=== PATIENT | female | born 1985 | race Two or more races ===

== ENCOUNTER → 2021-10-08 07:40 | Outpatient (BNVA) | payer MEDICAID, SELFPAY | PROVIDERS: PCP Advanced Practice Midwife; Referring Provider Advanced Practice Midwife; Visit Provider Physician Assistant | DX: F40.298 Other specified phobia (principal); Z83.71 Family history of colonic polyps; Z80.0 Family history of malignant neoplasm of digestive organs | CPT/HCPCS: 99202 ==

== ENCOUNTER 2022-01-30 07:58 | Day surgery (SDC) | payer MEDICAID, SELFPAY ==
--- NOTE | 2022-01-29 14:06 | HO.ANESPROP2 ---
Documented by User: Keyanna Goldsmith NP 01/29/22 14:07 HPI - Anesthesia Eval Consult details Narrative: 36yo F for Colonoscopy PMFSH Active Problems Active Problems: All Active Problems (Updated 01/24/22 @ 14:30 by Mraie Cowan, ERIC) Family history of colon cancer (Acute) Family history of colonic polyps (Acute) Cancer phobia (Acute) Past Medical History Medical History Depression Insomnia Mild intermittent asthma PTSD (post-traumatic stress disorder) Family History Family History Father Heart disease Diabetes Mother Anxiety Depression Colon polyps Family/Other Colon cancer Surgical History Surgical History History of laparoscopic appendectomy Hx of section Social History Social History Household Members: Spouse Alcohol intake: current Alcohol intake frequency: holidays/special occasions only Patient Tobacco Use Status: Former Tobacco user Tobacco use type: Cigarette e-Cigarette/Vaping Use: Currently Using Advance Directives: No Advance Directives Information Provided: Yes Meds Allergies Allergy/AdvReac Type Severity Reaction Status Date / Time No Known Allergies Allergy Verified 01/24/22 13:49 Home Medications Medication Instructions Recorded Confirmed Last Taken Type clonazepam 1 mg tablet 1 mg PO DAILY 10/08/21 01/24/22 Unknown History risperidone 0.25 mg tablet 0.25 mg PO DAILY 10/08/21 01/24/22 Unknown History zolpidem 10 mg tablet 10 mg PO BEDTIME PRN Sleep 10/08/21 01/24/22 Unknown History Exam Exam Date and Time: January 29, 2022 1406 Assessment and Plan Assessment Anesthesia Assessment: Chart Reviewed Documented by User: Marybeth Christianson MD 01/30/22 08:47 [facility] Past Medical History Medical History Depression Insomnia Mild intermittent asthma PTSD (post-traumatic stress disorder) Functional capacity: independent ambulation Patient : No Family History Family History Father Heart disease Diabetes Mother Anxiety Depression Colon polyps Family/Other Colon cancer Family history of problems with anesthesia: No Surgical History Surgical History History of laparoscopic appendectomy Hx of section History of Problems with Anesthesia: No Social History Social History Household Members: Spouse Alcohol intake: current Alcohol intake frequency: holidays/special occasions only Patient Tobacco Use Status: Former Tobacco user Tobacco use type: Cigarette e-Cigarette/Vaping Use: Currently Using Advance Directives: No Advance Directives Information Provided: Yes Meds Allergies Allergy/AdvReac Type Severity Reaction Status Date / Time No Known Allergies Allergy Verified 01/24/22 13:49 Home Medications Medication Instructions Recorded Confirmed Last Taken Type clonazepam 1 mg tablet 1 mg PO DAILY 10/08/21 01/24/22 Unknown History risperidone 0.25 mg tablet 0.25 mg PO DAILY 10/08/21 01/24/22 Unknown History zolpidem 10 mg tablet 10 mg PO BEDTIME PRN Sleep 10/08/21 01/24/22 Unknown History Exam Airway Mallampati Class: II TM Dist: >3cm Neck ROM: Full Heart: RRR Assessment and Plan Final Anesthetic Review Family History of Problems with Anesthesia: No History of Problems with Anesthesia: No ASA Class: II Final Preanesthetic Review: No Changes in Pt Med Stat, Meds/Allgs Chart Reviewed, Consent Obtained/Reviewed and Anes Risks/Benef Reviewed Patient Risk: Low Procedure Risk: Low Anesthetic Plan Anesthetic Plan: MAC: Disposition: Standard PACU
[2022-01-30 08:43] VITALS: BMI 27.4
[2022-01-30 08:43] LABS: UPreg QC Valid YES; Urine Pregnancy NEGATIVE (NEGATIVE)
[2022-01-30 08:52] VITALS: BP 107/71; PULSE 92; RESP 18; TEMP 36.8; O2SAT 97
[2022-01-30 08:53] VITALS: BMI 27.4
--- NOTE | 2022-01-30 09:10 | MHC.SHP ---
Pre-Procedural Eval Section A Date of Service: 01/30/22 Section B Chief Complaint: hx of colonic polyps and malignant neoplasm Details of Present Illness: fh of polyps in mother Relevant Family History (Specify if Yes): Yes Relevant Social History: Other (specify) (vaping) Present Medications: see Short Stay Collaborative assessment Medical History: Significant History (Depression Insomnia Mild intermittent asthma PTSD (post-traumatic stress disorder)) History of Previous Operations: Relevant previous surgery/procedure and date(s) (History of laparoscopic appendectomy Hx of section) Allergies: Allergies Allergy/AdvReac Type Severity Reaction Status Date / Time No Known Allergies Allergy Verified 01/24/22 13:49 Review of Systems Sugical H&P ROS: Negative: Constitution, Cardiovascular, Respiratory, Neurological, Psychiatric, Hem-Onc, Allergic/Immunologic, Gastrointestinal, Genitourinary, Musculoskeletal, Integumentary, Endocrine and Eyes/Ears/Nose/Throat Exam Surgical H&P Exam: Normal: HEENT, Normal: Heart, Normal: Lungs, Normal: Extremities, Normal: Abdomen, Normal: Skin and Normal: Neurological Plan Diagnosis/Plan: Unchanged I have reviewed the history and physical and performed a pertinent physical examination on my patient. No changes have occurred unless specified.
--- NOTE | 2022-01-30 09:16 | W.PM.OPN ---
Operative Note Operative Note Date of Service: 01/30/22 Narrative: Operative Information Procedure Description: Colonoscopy Indication: Fh of colon polyps, cancer Anesthesia: MAC COLONOSCOPY Instrument: Olympus variable stiffness pediatric scope 190L Colonoscopy Monitoring: Vital signs and clinical assessment, continuous EKG monitoring, Pulse oximetry, Carbon Dioxide monitoring and blood pressure monitoring were done throughout the procedure. Colon withdrawal time was 7 minutes. Procedure: The patient was placed in the left lateral decubitis position and pre-procedure medications were administered. After a digital rectal examination of the ano-rectum, the video colonoscope was inserted into the rectum and advanced through the colon to the cecum/TI. The colonoscope was slowly withdrawn in a retrograde panoramic fashion and the colon mucosa was carefully examined including a retroflexed view of the rectum. Findings and interventions are described below. Procedure Difficulty: easy Findings: Terminal Ileum-normal right sided retroflexion-nml Cecum:normal Ascending Colon: normal Transverse Colon -normal Descending Colon: 10-12 mm sessile polyp removed with cold snare Sigmoid Colon: normal Rectum: Retroflexion with small internal hemorrhoids, grade I Anorectum - normal Colon preparation: [place] Bowel Preparation Scale Right colon; 2 Transverse colon: 3 Left colon; 3 (0 = Unprepared colon segment with mucosa not seen due to solid stool that cannot be cleared. 1 = Portion of mucosa of the colon segment seen, but other areas of the colon segment not well seen due to staining, residual stool and/or opaque liquid. 2 = Minor amount of residual staining, small fragments of stool and/or opaque liquid, but mucosa of colon segment seen well. 3 = Entire mucosa of colon segment seen well with no residual staining, small fragments of stool or opaque liquid) Impression and Post Procedure Diagnosis: polyp internal hemorrhoids Plan: High fiber diet leaflet Avoid straining at stool, epsom salts and sitz bath, anusol supps or cream Repeat Colonoscopy in 5 years due to FH and poylp removed today or earlier if clinically indicated Above findings were reviewed with the patient and relevant handouts were provided if indicated.
[2022-01-30] MEDS: Lactated Ringers 1,000 ML 100 ML IVCONT (09:21)
[2022-01-30 09:52] VITALS: BP 97/61; PULSE 100; RESP 16; TEMP 37.3; O2SAT 97
[2022-01-30 10:07] VITALS: BP 118/58; PULSE 84; RESP 17; O2SAT 100
--- NOTE | 2022-01-30 12:02 | HO.POSTANES ---
Post Anesthesia Evaluation Post Anesthesia Evaluation Vital Signs: Vital Signs Temp Pulse Resp BP Pulse Ox O2 Del Method 01/30/22 10:07 84 17 118/58 L 100 Room Air 01/30/22 09:52 99.1 F 100 16 97/61 97 Room Air 01/30/22 08:52 98.2 F 92 18 107/71 97 Room Air Anesthesia: Monitored Mental Status: Awake Pain Control: Satisfactory Nausea/Vomiting: None Hydration: Adequate Anesthesia-Related Issues: No Anes. Related Issues
== END 2022-01-30 10:53 | disposition home or self-care (01) ==
PROVIDERS: Nurse Practitioner; PCP Internal Medicine; Visit Provider Internal Medicine Gastroenterology
PROC: 0DJD8ZZ Inspection of Lower Intestinal Tract, Via Natural or Artificial Opening Endoscopic (ICD-10-PCS; CPT 45378; principal; 2022-01-30 09:20)
DX: Z12.11 Encounter for screening for malignant neoplasm of colon (principal); Z83.71 Family history of colonic polyps; Z80.0 Family history of malignant neoplasm of digestive organs; D12.4 Benign neoplasm of descending colon; K64.0 First degree hemorrhoids; K21.9 Gastro-esophageal reflux disease without esophagitis; J45.20 Mild intermittent asthma, uncomplicated; F32.A Depression, unspecified; F43.10 Post-traumatic stress disorder, unspecified; G47.00 Insomnia, unspecified; K59.00 Constipation, unspecified; F40.298 Other specified phobia; Z79.899 Other long term (current) drug therapy; Z87.891 Personal history of nicotine dependence
CPT/HCPCS: 45385; 81025; 88305

== ENCOUNTER 2022-10-26 12:14 | Emergency (ER) | payer MEDICAID, SELFPAY ==
--- NOTE | ~2022-10-26 | XR_ITS ---
EXAMINATION: XR CHEST CLINICAL INFORMATION: Shortness of breath COMPARISON: 08/12/2018 TECHNIQUE: 2 views of the chest were obtained. FINDINGS: Lungs are well-inflated and clear. Trachea is midline in position. No interstitial disease, consolidation or mass. No pleural effusion or pneumothorax. Cardiac silhouette and pulmonary vessels are normal in size. The mediastinum and abram have normal contour. The visualized bones, and upper abdomen, are unremarkable. XR/XR chest 2V IMPRESSION: Normal chest radiographs. No acute cardiopulmonary abnormality.
--- NOTE | ~2022-10-26 | XR_ITS ---
EXAMINATION: XR SHOULDER, RIGHT CLINICAL INFORMATION: Reason for Exam pain COMPARISON: None TECHNIQUE: Four views of the shoulder. FINDINGS: No acute fracture or dislocation. Joint spaces are maintained without significant degenerative change. Soft tissues are unremarkable. XR/XR shoulder RT min 2V IMPRESSION: * No acute osseous abnormality.
[2022-10-26 12:38] VITALS: BP 110/71; PULSE 98; RESP 16; TEMP 36.3; O2SAT 98; BMI 29.2
--- NOTE | 2022-10-26 12:41 | ED_ITS ---
HPI - General Adult General Chief complaint: Recheck/Abnormal Lab/Rx Stated complaint: blood infection? Time Seen by Provider: 10/26/22 16:09 Source: patient, RN notes reviewed and old records reviewed Mode of arrival: ambulatory Limitations: no limitations History of Present Illness HPI narrative: 36-year-old female presents for evaluation of right shoulder pain. Patient reports she has pain for last few days. She went to her PCP yesterday due to her right shoulder pain. She received a call that ?a test in my blood said maybe I had blood clots in my lungs and I needed to go to the ER? Patient is unsure what the test was She has been taking ibuprofen for her right shoulder pain that has been helping Denies any chest pain or shortness breath. She denies any history of DVTs. Denies any recent flights in the last 12 months. She has not had any contraception Related Data Home Medications Medication Instructions Recorded Confirmed clonazepam 1 mg tablet 1 mg PO DAILY 10/08/21 01/24/22 risperidone 0.25 mg tablet 0.25 mg PO DAILY 10/08/21 01/24/22 zolpidem 10 mg tablet 10 mg PO BEDTIME PRN Sleep 10/08/21 01/24/22 Previous Rx's Medication Instructions Recorded bisacodyl 5 mg tablet,delayed 10 mg PO ONCE colonoscopy prep 1 10/08/21 release (Dulcolax (bisacodyl)) day #2 tabs polyethylene glycol 3350 17 238 g PO ONCE 1 day #238 grams 10/08/21 gram/dose oral powder (Miralax) naproxen 500 mg tablet 500 mg PO BID PRN pain #14 tabs 10/26/22 Allergies Allergy/AdvReac Type Severity Reaction Status Date / Time No Known Allergies Allergy Verified 10/26/22 12:38 Review of Systems Constitutional: Constitutional: Reports as per HPI, Denies chills, Denies fatigue, Denies fever(s) and Denies headache(s) ENT: Denies headache(s) Cardiovascular: Cardiovascular: Denies chest pain and Denies dyspnea Respiratory: Respiratory: Denies cough and Denies dyspnea Gastrointestinal: Gastrointestinal: Denies abdominal pain, Denies constipation and Denies vomiting Genitourinary: Genitourinary: Denies dysuria Musculoskeletal: Musculoskeletal: Denies deformity, Reports arthralgias and Reports limited range of motion Neurologic: Denies headache(s) and Denies focal weakness Endocrine: Endocrine: Denies fatigue PMFSH Past Medical History Medical History (Updated 10/26/22 @ 17:02 by Zelalem Henry) Depression Insomnia Mild intermittent asthma PTSD (post-traumatic stress disorder) Surgical History (Updated 01/30/22 @ 09:45 by Mia Antonio) History of laparoscopic appendectomy Hx of section Hx of colonoscopy Family History Family History Father Heart disease Diabetes Mother Anxiety Depression Colon polyps Family/Other Colon cancer Social History Social History Household Members: Spouse Alcohol intake: never Patient Tobacco Use Status: Former Tobacco user Tobacco use type: Cigarette Smoked in Last 30 Days: Yes e-Cigarette/Vaping Use: Currently Using Use of substances other than those prescribed or required for medical reasons: No Advance Directives: No Advance Directives Information Provided: No Physical Exam ED Vital Signs: Vital Signs - 24 hr 10/26/22 12:38 10/26/22 15:48 10/26/22 15:56 Temperature 97.3 F 98.4 F Pulse Rate 98 81 91 Respiratory Rate 16 20 18 Blood Pressure 110/71 113/78 113/78 Pulse Oximetry 98 100 100 Oxygen Delivery Method Room Air Nasal Cannula Room Air 10/26/22 16:00 Temperature Pulse Rate 91 Respiratory Rate 18 Blood Pressure 113/78 Pulse Oximetry 100 Oxygen Delivery Method Room Air BMI result Body Mass Index 29.2 Const General: healthy appearing, comfortable, no acute distress, alert and awake Nutritional Appearance: well nourished Orientation/consciousness: patient oriented x3 HENMT Head: Yes normocephalic and Yes atraumatic Throat: Yes posterior oropharynx normal Eyes Eyelids: Yes eyelids normal Conjunctivae: conjunctivae normal Sclerae: sclerae normal Corneas: corneas normal Pupils: Equal, round and reactive pupils present EOM: EOMs intact bilaterally Neck Neck: Yes full ROM Resp Effort & Inspection: normal respiratory effort, able to speak in complete sentences, no audible wheezes and not labored Auscultation: clear to auscultation bilaterally Cardio Rate: regular rate Rhythm: regular rhythm Skin General skin exam: no rashes or lesions noted and elasticity normal Neuro General: patient oriented x3 Cranial nerves: Yes Equal, round and reactive pupils present and Yes Bilaterally intact EOM present Cognition (Neuro): normal cognition Extrem Other: Moving all extremities well without any obvious deformities. Specifically, no deformity to the right shoulder. The patient is globally tender to palpation right shoulder including the AC joint, distal clavicle, rotator cuff. Again there are no deformities Course Course Course Narrative: RME performed by Cheri Martel PA-C. Patient is a 36 year old assigned female at presenting to the emergency department with shortness of breath and bilateral shoulder pain after being told that she has an elevated d dimer by a different provider. Labs and imaging ordered. Patient placed back in the waiting room pending room availability and results. Medical Decision Making Medical Decision Making [facility] Narrative: 36-year-old female presents for evaluation of right shoulder pain that is reproducible on exam. Consistent with arthritis/muscle strain. Will get an x- ray of the right shoulder. The patient is describing what sounds like an elevated D-dimer. A D-dimer here is actually negative. She has no risk factors for PE. No cough, shortness of breath. She is not tachycardic, hypoxic or even coughing. I discussed this with the patient, there is no indication for a CT angiography this time. I have a very low suspicion for PE. The patient is PERC negative Differential Diagnosis Right shoulder pain Arthritis Calcific tendinitis Rotator cuff injury Lab Data [facility] Lab Attestation statement: I reviewed the patient's lab results. 10/26/22 13:35 10/26/22 13:36 Labs: Lab Results 10/26/22 10/26/22 10/26/22 Range/Units 13:35 13:35 13:36 WBC 6.7 (4.8-10.8) X10*3/uL RBC 4.40 (4.20-5.50) X10*6/uL Hgb 13.2 (12.0-16.0) g/dl Hct 39.7 (37.0-47.0) % MCV 90.2 (80.0-98.0) fL MCH 30.0 (27.0-33.0) pg MCHC 33.2 (31.0-35.0) g/dl RDW 12.7 (11.0-16.0) % Plt Count 370 (160-400) X10*3/uL MPV 9.1 L (9.4-12.3) fL Immature Gran % (Auto) 0.3 (0.0-0.4) % Neut % (Auto) 57.3 (45-73) % Lymph % (Auto) 31.8 (20-40) % [place] % (Auto) 7.7 (2-11) % Eos % (Auto) 2.1 (0-4) % Baso % (Auto) 0.8 (0-2) % Lymph # (Auto) 2.1 (1.2-4.9) X10*3/uL [place] # (Auto) 0.5 (0.1-1.2) X10*3/uL Eos # (Auto) 0.1 (0.0-0.4) X10*3/uL Baso # (Auto) 0.1 (0.0-0.2) X10*3/uL Abs Immat Gran (auto) 0.02 (0.00-0.03) X10*3/uL Absolute Neuts (auto) 3.8 (2.0-8.3) x10*3/uL Absolute Nucleated RBC 0.000 (0.0-0.012) X10*3/uL Nucleated RBC % (auto) 0.0 (0.0-0.2) /100WBC D-Dimer High Sensitivty 213 NG/ML Sodium 142 (135-145) mmol/L Potassium 4.4 (3.3-5.1) mmol/L Chloride 111 H (96-108) mmol/L Carbon Dioxide 23 (22-29) mmol/L Anion Gap 12 (12-20) BUN 9 (9-16) mg/dL Creatinine 0.86 (0.5-1.4) mg/dL Estim Creat Clear Calc 75.1 Estimated GFR > 60 Random Glucose 81 (60-115) mg/dL Calcium 9.6 (8.4-10.2) mg/dL Magnesium 2.1 (1.6-2.6) mg/dL Total Bilirubin 0.3 (0.0-1.0) mg/dL AST 15 (5-31) U/L ALT 13 (0-31) U/L Alkaline Phosphatase 74 (39-117) U/L Troponin I High Sens (<3.5-17.0) ng/L Total Protein 6.7 (6.5-8.0) g/dL Albumin 3.9 (3.5-5.0) g/dL Beta HCG, Quant < 2 mIU/mL 10/26/22 Range/Units 13:36 WBC (4.8-10.8) X10*3/uL RBC (4.20-5.50) X10*6/uL Hgb (12.0-16.0) g/dl Hct (37.0-47.0) % MCV (80.0-98.0) fL MCH (27.0-33.0) pg MCHC (31.0-35.0) g/dl RDW (11.0-16.0) % Plt Count (160-400) X10*3/uL MPV (9.4-12.3) fL Immature Gran % (Auto) (0.0-0.4) % Neut % (Auto) (45-73) % Lymph % (Auto) (20-40) % [place] % (Auto) (2-11) % Eos % (Auto) (0-4) % Baso % (Auto) (0-2) % Lymph # (Auto) (1.2-4.9) X10*3/uL [place] # (Auto) (0.1-1.2) X10*3/uL Eos # (Auto) (0.0-0.4) X10*3/uL Baso # (Auto) (0.0-0.2) X10*3/uL Abs Immat Gran (auto) (0.00-0.03) X10*3/uL Absolute Neuts (auto) (2.0-8.3) x10*3/uL Absolute Nucleated RBC (0.0-0.012) X10*3/uL Nucleated RBC % (auto) (0.0-0.2) /100WBC D-Dimer High Sensitivty NG/ML Sodium (135-145) mmol/L Potassium (3.3-5.1) mmol/L Chloride (96-108) mmol/L Carbon Dioxide (22-29) mmol/L Anion Gap (12-20) BUN (9-16) mg/dL Creatinine (0.5-1.4) mg/dL Estim Creat Clear Calc Estimated GFR Random Glucose (60-115) mg/dL Calcium (8.4-10.2) mg/dL Magnesium (1.6-2.6) mg/dL Total Bilirubin (0.0-1.0) mg/dL AST (5-31) U/L ALT (0-31) U/L Alkaline Phosphatase (39-117) U/L Troponin I High Sens < 2.7 (<3.5-17.0) ng/L Total Protein (6.5-8.0) g/dL Albumin (3.5-5.0) g/dL Beta HCG, Quant mIU/mL Independent Interpretation I performed an independent interpretation of an: Plain X-Ray (Chest x-ray clear. Shoulder x-ray without arthritic changes) Discharge Plan Discharge Clinical Impression: Acute pain of right shoulder Patient Disposition: Home, Self-Care Instructions: Shoulder Pain (ED) Additional Instructions: Your blood work was reassuring. Your x-ray of her chest was clear and the x-ray of your right shoulder did not show arthritis Use naproxen as needed for pain of the right shoulder Follow-up with your primary doctor Prescriptions: New naproxen 500 mg tablet 500 mg PO BID PRN (Reason: pain) Qty: 14 0RF No Action risperidone 0.25 mg tablet 0.25 mg PO DAILY zolpidem 10 mg tablet 10 mg PO BEDTIME PRN (Reason: Sleep) clonazepam 1 mg tablet 1 mg PO DAILY bisacodyl [Dulcolax (bisacodyl)] 5 mg tablet,delayed release (DR/EC) 10 mg PO ONCE 1 Days Qty: 2 0RF Rx Instructions: Take 2 tablets by mouth at 12:00pm the day before your procedure. polyethylene glycol 3350 [Miralax] 17 gram/dose powder 238 g PO ONCE 1 Days Qty: 238 0RF Rx Instructions: Take as directed by mouth the day before your procedure.
--- NOTE | 2022-10-26 12:42 | ECG_ITS ---
Test Reason : SOB Blood Pressure : / mmHG Vent. Rate : 077 BPM Atrial Rate : 077 BPM P-R Int : 146 ms QRS Dur : 082 ms QT Int : 386 ms P-R-T Axes : 021 053 024 degrees QTc Int : 436 ms Normal sinus rhythm Normal ECG When compared with ECG of 28-JAN-2018 10:41, No significant change was found Referred By: Cheri Martel Electronically Signed By:MAGGIE TELLEZ MD
[2022-10-26 13:41] LABS: MANUAL DIFF FLAG NO
[2022-10-26 13:43] LABS: Basophils Absolute Auto 0.1 X10*3/uL (0.0-0.2); Basophils Percent Auto 0.8 % (0-2); Eosinophils Absolute Auto 0.1 X10*3/uL (0.0-0.4); Eosinophils Percent Auto 2.1 % (0-4); Hematocrit 39.7 % (37.0-47.0); Hemoglobin 13.2 g/dl (12.0-16.0); Imm Gran Abs Auto 0.02 X10*3/uL (0.00-0.03); Imm Gran Pct Auto 0.3 % (0.0-0.4); Lymphocytes Absolute Auto 2.1 X10*3/uL (1.2-4.9); Lymphocytes Percent Auto 31.8 % (20-40); Mean Corpuscular HGB Conc 33.2 g/dl (31.0-35.0); Mean Corpuscular Volume 90.2 fL (80.0-98.0); Mean Platelet Volume 9.1 fL (9.4-12.3); Monocytes Absolute Auto 0.5 X10*3/uL (0.1-1.2); Monocytes Percent Auto 7.7 % (2-11); Neutrophils Absolute Auto 3.8 x10*3/uL (2.0-8.3); Neutrophils Percent Auto 57.3 % (45-73); Platelet Count 370 X10*3/uL (160-400); Red Cell Distribution Width 12.7 % (11.0-16.0); White Blood Count 6.7 X10*3/uL (4.8-10.8)
[2022-10-26 13:56] LABS: D Dimer High Sensitivity 213 NG/ML
[2022-10-26 14:07] LABS: Alanine Aminotransferase 13 U/L (0-31); Albumin Level 3.9 g/dL (3.5-5.0); Alkaline Phosphatase 74 U/L (39-117); Anion Gap 12 (12-20); Aspartate Amino Transferase 15 U/L (5-31); Bilirubin Total 0.3 mg/dL (0.0-1.0); Blood Urea Nitrogen 9 mg/dL (9-16); Calcium 9.6 mg/dL (8.4-10.2); Carbon Dioxide 23 mmol/L (22-29); Chloride 111 mmol/L (96-108); Creatinine Clr Calc Pharmacy 75.1; Estimated Glomerular Filt Rate > 60; Glucose Random 81 mg/dL (60-115); Magnesium 2.1 mg/dL (1.6-2.6); Potassium 4.4 mmol/L (3.3-5.1); Sodium 142 mmol/L (135-145); Total Protein 6.7 g/dL (6.5-8.0)
[2022-10-26 14:08] LABS: HCG Quantitative < 2 mIU/mL
[2022-10-26 14:09] LABS: Troponin-I High Sensitivity < 2.7 ng/L (<3.5-17.0)
[2022-10-26 15:48] VITALS: BP 113/78; PULSE 81; RESP 20; O2SAT 100
[2022-10-26 15:56] VITALS: BP 113/78; PULSE 91; RESP 18; TEMP 36.9; O2SAT 100
--- NOTE | 2022-10-26 15:59 | PC.NURSE ---
Alert and oriented stating has had pain in the right shoulder since that is not improving. States when she breaths in deep it hurts. Denies any injury to shoulder. no sob or chest pain noted. VSS. NSR on monitor. Family member at bedside. Hand grasps strong and equal. States always has tingling in both hands.
[2022-10-26 16:00] VITALS: BP 113/78; PULSE 91; RESP 18; O2SAT 100
--- NOTE | 2022-10-26 17:28 | PC.NURSE ---
Alert and oriented. Reviewed discharge with patient and significant other. Both verbalized understanding
== END 2022-10-26 17:27 | disposition home or self-care (01) ==
PROVIDERS: Physician Assistant Medical; Emergency Provider Emergency Medicine; PCP Internal Medicine
DX: M25.511 Pain in right shoulder (principal); R07.89 Other chest pain; R06.02 Shortness of breath; Z87.891 Personal history of nicotine dependence; Z79.899 Other long term (current) drug therapy
CPT/HCPCS: 36415; 71046; 73030; 80053; 83735; 84484; 84702; 85025; 85379; 93005; 99283; 99284

== ENCOUNTER 2022-12-29 11:08 | Emergency (ER) | payer MEDICAID, SELFPAY ==
[2022-12-29 11:35] VITALS: BP 125/76; PULSE 97; RESP 18; TEMP 37.1; O2SAT 98; BMI 27.3
--- NOTE | 2022-12-29 11:35 | ED.GENADULT ---
HPI - General Adult General Chief complaint: General Medical Stated complaint: urine test needed Time Seen by Provider: 12/29/22 14:01 Source: patient Mode of arrival: ambulatory Limitations: no limitations History of Present Illness HPI narrative: Patient is a 37 year old assigned female at with a history of PTSD, depression, insomnia, and asthma presenting to the emergency department today requesting a test. Patient states that her breasts have been hurting and she wants to check to see if she is . Patient denies any dizziness, lightheadedness, abdominal pain, nausea, vomiting, fever, chills, blurry vision, double vision, loss of vision, chest pain, difficulty breathing, shortness of breath, back pain, night sweats, pain with urination, increased urinary frequency, increased urinary urgency, blood in her urine or stool, syncope or a near syncopal episode, recent trauma or falls, bowel incontinence, bladder incontinence, bowel retention, bladder retention, or any other complaints at this time. Onset (ago): day(s) Severity: mild Severity scale (1-10): 2 Relieving factors: none Exacerbating factors: none Associated symptoms: denies other symptoms Treatments prior to arrival: none Related Data Home Medications Medication Instructions Recorded Confirmed clonazepam 1 mg tablet 1 mg PO DAILY 10/08/21 01/24/22 risperidone 0.25 mg tablet 0.25 mg PO DAILY 10/08/21 01/24/22 zolpidem 10 mg tablet 10 mg PO BEDTIME PRN Sleep 10/08/21 01/24/22 Previous Rx's Medication Instructions Recorded bisacodyl 5 mg tablet,delayed 10 mg PO ONCE colonoscopy prep 1 10/08/21 release (Dulcolax (bisacodyl)) day #2 tabs polyethylene glycol 3350 17 238 g PO ONCE 1 day #238 grams 10/08/21 gram/dose oral powder (Miralax) naproxen 500 mg tablet 500 mg PO BID PRN pain #14 tabs 10/26/22 Allergies Allergy/AdvReac Type Severity Reaction Status Date / Time No Known Allergies Allergy Verified 10/26/22 12:38 Review of Systems Constitutional: Constitutional: Reports no additional constitutional complaints, Denies chills, Denies fever(s) and Denies night sweats Eyes: Eyes: Reports no additional eye complaints, Denies blurry vision, Denies change in vision, Denies diplopia, Denies eye discharge, Denies loss of vision and Denies eye pain ENT: Denies dizziness Cardiovascular: Cardiovascular: Reports no additional cardiovascular complaints, Denies chest pain, Denies lightheadedness, Denies Loss of Consciousness and Denies dyspnea Respiratory: Respiratory: Reports no additional respiratory complaints and Denies dyspnea Gastrointestinal: Gastrointestinal: Reports no additional gastrointestinal complaints, Denies abdominal pain, Denies melena, Denies hematochezia, Denies change in bowel habits and Denies change in stool character Genitourinary: Genitourinary: Denies hematuria, Denies urinary frequency, Denies dysuria, Denies urinary incontinence, Denies urinary hesitancy and Denies urinary urgency Musculoskeletal: Musculoskeletal: Reports no additional musculoskeletal complaints, Denies numbness and Denies tingling Neurologic: Denies dizziness, Denies loss of vision, Denies numbness and Denies tingling Psychiatric: Psychiatric: Reports no additional psychiatric complaints Endocrine: Endocrine: Reports no additional endocrine complaints Hematologic/Lymphatic: Hematologic/Lymphatic: Reports no additional hematologic/lymphatic complaints Allergic/Immunologic: Allergic/Immunologic: Reports no additional allergic/immunologic complaints [facility] Past Medical History Attestation statement: The following information was validated with the patient. Source: old records reviewed and nursing notes reviewed Medical History Depression Family history of colon cancer Family history of colonic polyps Insomnia Mild intermittent asthma PTSD (post-traumatic stress disorder) Surgical History History of laparoscopic appendectomy Hx of section Hx of colonoscopy Family History Family History Father Heart disease Diabetes Mother Anxiety Depression Colon polyps Family/Other Colon cancer Social History Social History Household Members: Spouse Alcohol intake: never Patient Tobacco Use Status: Former Tobacco user Tobacco use type: Cigarette e-Cigarette/Vaping Use: Currently Using Advance Directives: No Advance Directives Information Provided: No Physical Exam ED Vital Signs: Vital Signs - 24 hr 12/29/22 11:35 12/29/22 13:55 Temperature 98.7 F Pulse Rate 97 91 Respiratory Rate 18 14 Blood Pressure 125/76 124/81 Pulse Oximetry 98 99 Oxygen Delivery Method Room Air BMI result Body Mass Index 27.3 Const General: cooperative, no acute distress, alert and awake Nutritional Appearance: well nourished Orientation/consciousness: patient oriented x3 Limitations: no limitations HENMT Head: Yes normal to inspection and Yes atraumatic Ears: hearing grossly normal bilaterally and external ears normal General nose exam: Normal external nose present, no nasal discharge noted and no epistaxis Face and sinus: Yes normal facial exam, No abrasion and No laceration Mouth: Normal oral and palatal mucosa present, no drooling and no muffled voice Eyes General: appearance normal, both eyes and all related structures Periorbital: periorbital findings normal Eyelids: Yes eyelids normal Conjunctivae: conjunctivae normal Pupils: Equal, round and reactive pupils present EOM: EOMs intact bilaterally Neck Neck: Yes normal visual inspection, Yes full ROM and Yes no lymphadenopathy Chest Chest palpation & inspection: normal inspection of the chest Resp Effort & Inspection: normal respiratory effort and able to speak in complete sentences GI Inspection: Yes normal to inspection Neuro General: patient oriented x3 and moves all extremities Cranial nerves: Yes Equal, round and reactive pupils present Cognition (Neuro): normal cognition Motor exam (neuro): 5/5 motor strength present throughout Sensory Exam: Normal double simultaneous stimulation for sensation Coordination: [id number] test normal Extrem General: Yes normal to inspection, Yes full ROM and Yes capillary refill normal Psych Appearance: grossly normal Mental Status: mental status grossly normal Affect: normal affect Attitude: cooperative Thought process: Normal thought process present Thought content: Normal thought content present Insight: Good insight present (Psych) Course Course Course Narrative: RME performed by Cheri Martel PA-C. Patient is a 37 year old assigned female at presenting to the emergency department for a test. Patient's breasts hurt and she is concerned that means she is . Labs ordered. Patient placed back in the waiting room pending room availability and results. Medical Decision Making Medical Decision Making MDM Narrative: Patient is a 37 year old assigned female at with a history of PTSD, asthma, depression, and asthma presenting to the emergency department today requesting a test. Patient's physical exam was unremarkable. Patient's urine showed no acute process. Patient's urine test was positive. I explained my physical exam findings as well as all test results to the patient. I answered all questions asked by the patient. I stressed the importance of the patient taking her medication as prescribed. I stressed the importance of the patient following up with her primary care provider and OBGYN. I stressed the importance of the patient returning to the emergency department immediately if her symptoms were to worsen or if she were to develop any dizziness, shortness of breath, difficulty breathing, chest pain, blurry vision, loss of vision, nausea, vomiting, abdominal pain, fever, chills, back pain, or any other complaints. Patient verbalized agreement and understanding with this treatment plan and discharge. Differential Diagnosis Differential Diagnoses: The differential diagnosis associated with the presentation includes Lab Data MDM Lab Attestation statement: I reviewed the patient's lab results. My interpretation of these studies and their corresponding values is that they are grossly normal with the exception of a positive urine test. Labs: Lab Results 12/29/22 12/29/22 Range/Units 13:15 13:15 Urine Color Yellow Urine Appearance Clear Urine pH 6.5 (5.0-9.0) Ur Specific [place] 1.010 (1.005-1.025) Urine Protein Negative (Neg-Trace) mg/dL Urine Glucose (UA) Negative (Negative) mg/dL Urine Ketones Negative (Negative) mg/dL Urine Blood Small (1+) H (Negative) Urine Nitrite Negative (Negative) Ur Leukocyte Esterase Negative (Negative) Urine RBC 6-10 H (0-2) /HPF Urine WBC 0-5 (0-5) /HPF Ur Squamous Epith Cells 0-2 (0-2) /HPF Urine Bacteria None Seen (None Seen) Hyaline Casts 0-2 (0-2) /LPF Urine Test POSITIVE H (NEGATIVE) Discharge Plan Discharge Clinical Impression: Patient Disposition: Home, Self-Care Instructions: (ED) Additional Instructions: Follow up with your primary care provider and an OBGYN. Return to the emergency department immediately if your symptoms worsen or if you develop any dizziness, shortness of breath, difficulty breathing, chest pain, blurry vision, loss of vision, nausea, vomiting, abdominal pain, fever, chills, back pain, or any other complaints. Jacqueline un seguimiento con trevino proveedor de atenci?n primaria y un obstetra y ginec?logo. Regrese al departamento de emergencias de inmediato si fidel s?ntomas empeoran o si presenta mareos, falta de aire, dificultad para respirar, dolor de pecho, visi?n borrosa, p?rdida de la visi?n, n?useas, v?mitos, dolor abdominal, fiebre, escalofr?os, dolor de espalda o cualquier otras quejas. Prescriptions: No Action naproxen 500 mg tablet 500 mg PO BID PRN (Reason: pain) Qty: 14 0RF risperidone 0.25 mg tablet 0.25 mg PO DAILY zolpidem 10 mg tablet 10 mg PO BEDTIME PRN (Reason: Sleep) clonazepam 1 mg tablet 1 mg PO DAILY bisacodyl [Dulcolax (bisacodyl)] 5 mg tablet,delayed release (DR/EC) 10 mg PO ONCE 1 Days Qty: 2 0RF Rx Instructions: Take 2 tablets by mouth at 12:00pm the day before your procedure. polyethylene glycol 3350 [Miralax] 17 gram/dose powder 238 g PO ONCE 1 Days Qty: 238 0RF Rx Instructions: Take as directed by mouth the day before your procedure. Referrals: Mia Henson MD [Primary Care Provider] - Jose R Sanchez MD [Physician] - (Call to establish and follow up with an OBGYN. Llame para establecer y hacer un seguimiento con un obstetra y ginec?logo.) Stand Alone Forms: Work/School Release Interventions: ED Discharge Assessment Last Done: 12/29/22 14:50 Discharge Date/Time: 12/29/22 14:51 Print Language: Divehi
[2022-12-29 13:32] LABS: Appearance Urine Clear; Color Urine Yellow; Glucose Urine UA Negative (Negative); Leukocyte Esterase Urine Negative (Negative); Nitrite Urine Negative (Negative); PH 6.5 (5.0-9.0); UMIC TRIGGER UACC YES; Urine Blood Small (1+) (Negative); Urine Ketones Negative (Negative); Urine Protein Negative (Neg-Trace)
[2022-12-29 13:37] LABS: Bacteria Urine None Seen (None Seen); Hyaline Casts Urine 0-2 /LPF (0-2); Squamous Epithelial Cell Urine 0-2 /HPF (0-2); WBC Urine 0-5 /HPF (0-5)
[2022-12-29 13:55] VITALS: BP 124/81; PULSE 91; RESP 14; O2SAT 99
[2022-12-29 13:58] LABS: UPreg QC Valid YES; Urine Pregnancy POSITIVE (NEGATIVE)
== END 2022-12-29 14:51 | disposition home or self-care (01) ==
PROVIDERS: Physician Assistant Medical; Emergency Provider Emergency Medicine; PCP Internal Medicine
DX: N64.4 Mastodynia (principal); Z79.899 Other long term (current) drug therapy
CPT/HCPCS: 81001; 81025; 99283

== ENCOUNTER 2023-04-24 13:34 | Outpatient (REF) | payer MEDICAID, SELFPAY | END 2023-04-24 13:35 | disposition home or self-care (01) | LOC: HO.HHCLNP 13:34 | PROVIDERS: Visit Provider Family Medicine | DX: J06.9 Acute upper respiratory infection, unspecified (principal) | CPT/HCPCS: 87070 ==

== ENCOUNTER 2025-02-28 08:50 | Outpatient (REF) | payer MEDICAID, SELFPAY ==
--- OUTSIDE RECORDS SUMMARY | 2025-02-25 13:00 | XMS_ITS | Encounter Summary ---
Author Organization [employer] Address [address] [place] [address] Care Team Providers Care Manager Support Name Role Phone Sharon Chung NP Primary Care Provider [phone] Reason for Visit * Reason Comments TP Encounter Details Date Type Department Care Team (Late st Contact Info) Description 02/25/2025 1:00 PM EDT Office Visit [facility] [address] [place] [address] Sharon Chung NP [address] [place] [address] Current nicotine use (Primary Dx); Encounter to establish care with new provider; Class 2 obesity due to excess calories without serious comorbidity with body mass index (BMI) of 35.0 to 35.9 in adult; Encounter for health-related screening Social History Tobacco Use Types Packs/Day Years Used Date Smoking Tobacco: Former Cigarettes Passive Smoke Exposure: Past Smokeless Tobacco: Current Comments:Vape Alcohol Use Standard Drinks/Week Comments Not Currently 0 (1 standard drink = 0.6 oz pur e alcohol) Rarely Alcohol Answer Date Recorded How often do you have a drink containing alcohol ? 1 02/25/2025 How many drinks containing a lcohol do you have on a typical day when you are drinking? 0 02/25/2025 How often do you have six or more drinks on one occasion? 0 02/25/2025 Depression Answer Date Recorded Patient Health Questionnaire-9 Score 9 02/25/2025 Patient Health Questionnaire-9 Score 9 02/25/2025 Last PHQ-9: Questionnaire Data Not on file 1 Housing Stability Answer Date Recorded What is your housing situation today? I have alvin rosen 02/18/[address] you li ve. Do you have problems with any of the following? None of the above 02/18/2025 Food Insecurity Answer Date Recorded Within the past 12 months, y ou worried that your food would run out before you got money to buy more: Never True 02/18/2025 Within the past 12 months,th e food you bought just didn't last and you didn't have enough money to get more: Never True Transportation Answer Date Recorded In the past 12 months, has l ack of transportation kept you from medical appts, meetings, work or from getting things needed for daily living? No 02/18/2025 Utilities Answer Date Recorded In the past 12 months, has t he electric, gas, oil or water company threatened to shut off services in your home? No 02/18/2025 Depression Answer Date Recorded Patient Health Questionnaire-2 Score 1 02/25/2025 Internet Access Answer Date Recorded Internet Access Q1 Yes 02/18/2025 Internet Access Q2 Not on file 02/18/2025 Comments No Sex and Gender Information Value Date Recorded Sex Assigned at Female 03/25/2022 10:15 AM EDT Legal Sex Female 10:15 AM EDT Gender Identity Female 03/25/2022 10:15 AM EDT Sexual Orientation Straight 03/25/2022 10 :15 AM EDT documented as of this encounter Last Filed Vital Signs Vital Sign Reading Time Taken Comments Blood Pressure 120/83 02/25/2025 1:10 PM EDT Pulse 110 02/25/2025 1:10 PM EDT Temperature 36.7 C (98.1 F) 02/25/2025 1:10 PM EDT Respiratory Rate 20 02/25/2025 1:10 PM EDT Oxygen Saturation 99% 02/25/2025 1:10 PM EDT Inhaled Oxygen Concentration - - Weight 81.6 kg (179 lb 12.8 oz) 02/25/2025 1:10 PM EDT Height 151.1 cm (4' 11.5 ) 02/25/2025 1:10 PM ED T Body Mass Index 35.71 02/25/2025 1:10 PM EDT documented in this encounter Functional Status * Over the past 2 weeks, how often have you been bothered by any of the following problems? Question Answer Date of Assessment Author Patient Health Questionnaire -2 Score 1 02/25/2025 1:12 PM EDT Anny Lucas MA * Little interest or pleasure in doing things Answer Date of Assessment Author Several days 02/25/2025 1:12 PM EDT Anny Lucas MA * Feeling down, depressed, or hopeless Answer Date of Assessment Author Not at all 02/25/2025 1:12 PM EDT Anny Lucas MA * Trouble falling or staying asleep, or sleeping too much Answer Date of Assessment Author Nearly every day 02/25/2025 1:12 PM EDT Anny Lucas MA * Feeling tired or having little energy Answer Date of Assessment Author Nearly every day 02/25/2025 1:12 PM EDT Anny Lucas MA * Poor appetite or overeating Answer Date of Assessment Author Several days 02/25/2025 1:12 PM EDT Anny Lucas MA * Feeling bad about yourself - or that you are a failure or have let yourself or your family down Answer Date of Assessment Author Not at all 02/25/2025 1:12 PM EDT Anny Lucas MA * Trouble concentrating on things, such as reading the newspaper or watching television Answer Date of Assessment Author Several days 02/25/2025 1:12 PM EDT Anny Lucas MA * Moving or speaking so slowly that other people could have noticed? Or the opposite - being so fidgety or restless that you have been moving around a lot more than usual. Answer Date of Assessment Author Not at all 02/25/2025 1:12 PM EDT Anny Lucas MA * Thoughts that you would be better off or hurting yourself in some way Answer Date of Assessment Author Not at all 02/25/2025 1:12 PM EDT Anny Lucas MA * Patient Health Questionnaire-9 Score Answer Date of Assessment Author 9 02/25/2025 1:12 PM EDT Anny Lucas MA * How difficult have these problems made it for you to do your work, take care of things at home, or get along with other people? Answer Date of Assessment Author Somewhat difficult 02/25/2025 1:12 PM EDT Anny Sherman MA * Over the last 2 weeks, how often have you been bothered by any of the following problems? Question Answer Date of Assessment Author Feeling nervous, anxious, or on edge 2 02/25/2025 1:12 PM EDT Anny Lucas MA Not being able to stop or co ntrol worrying 2 02/25/2025 1:12 PM EDT Anny Lucas MA Worrying too much about diff erent things 3 02/25/2025 1:12 PM EDT Anny Lucas MA Trouble relaxing 3 02/25/2025 1:12 PM EDT Anny Mendez MA Being so restless that it is hard to sit still 2 02/25/2025 1:12 PM EDT Anny Lucas MA Becoming easily annoyed or irritable 3 02/25/2025 1:12 PM EDT Anny Lucas MA Feeling afraid as if somethi ng awful might happen 3 02/25/2025 1:12 PM EDT Anny Lucas MA MANI-7 Total Score 18 02/25/2025 1:12 PM EDT Anny Lucas MA documented as of this encounter Plan of Treatment Upcoming Encounters Date Type Department Care Team (Late st Contact Info) Description 04/13/2025 9:45 AM EST Office Visit [facility] [address] [place] [address] Sharon Chung NP [address] [place] [address] Scheduled Orders Name Type Priority Associated Diagnoses Orde r Schedule Lipid Panel, Standard Lab Routine Class 2 obesity due to excess calories without serious comorbidity with body mass index (BMI) of 35.0 to 35.9 in adult Expected: 02/25/2025 (Approximate), Expires: 02/25/2026 TSH W/Reflex to FT4 Lab Routine Class 2 obesity due to excess calories without serious comorbidity with body mass index (BMI) of 35.0 to 35.9 in adult Expected: 02/25/2025 (Approximate), Expires: 02/25/2026 Hemoglobin A1c Lab Routine Class 2 obesity due to excess calories without serious comorbidity with body mass index (BMI) of 35.0 to 35.9 in adult Expected: 02/25/2025 (Approximate), Expires: 02/25/2026 HIV-1/2 Antigen and Antibodies, Fourth Generation, with Reflexes Lab Routine Encounter for health-related screening Expected: 02/25/2025 (Approximate), Expires: 02/25/2026 Hepatitis B surface antigen, EIA Lab Routine Encounter for health-related screening Expected: 02/25/2025 (Approximate), Expires: 02/25/2026 Hepatitis B Surface Antibody, Qualitative Lab Routine Encounter for health-related screening Expected: 02/25/2025 (Approximate), Expires: 02/25/2026 Hepatitis B Core Antibody, Total Lab Routine Encounter for health-related screening Expected: 02/25/2025 (Approximate), Expires: 02/25/2026 Hepatitis C Antibody with Reflex to HCV, RNA, Quantitative, Real-Time PCR Lab Routine Encounter for health-related screening Expected: 02/25/2025 (Approximate), Expires: 02/25/2026 documented as of this encounter Visit Diagnoses Diagnosis Current nicotine use- Primary Encounter to establish care with new provider Class 2 obesity due to excess calories without serious comorbidity with body mass index (BMI) of 35.0 to 35.9 in adult Encounter for health-related screening documented in this encounter Additional Health Concerns Assessment Noted Time PHQ-9 Depression Total Score: 9 02/26/20 25 1:12 PM EDT documented as of this encounter Care Teams Manager Support Relationship Specialty Start Date End Date Sharon Chung NP [address] [place] [id number] PCP - General Family Medicine 01/27/24 documented as of this encounter
--- OUTSIDE RECORDS SUMMARY | 2025-02-28 09:39 | XMS_ITS | Encounter Summary ---
Author Organization [employer] Address [address] [place] [address] Care Team Providers Care Auto Striper Name Role Phone Sharon Chung ROSIE Primary Care Provider [phone] Encounter Details Date Type Department Care Team (Latest Contact Info) Description 02/25/2025 Travel Social History Tobacco Use Types Packs/Day Years [...] is your housing situation today? I have alvinharrison rosen 02/18/[address] you [...] AM EDT documented as of this encounter Functional Status * Over the [...] Description 04/13/2025 9:45 AM EST Office Visit [facility] [address] [place] [address] Sharon Chung NP [address] [place] [address] documented as of this encounter Visit Diagnoses Not on filedocumented in this encounter Additional Health Concerns Assessment Noted Time PHQ-9 Depression Total Score: 9 02/26/20 25 1:12 PM EDT documented as of this encounter Care Teams Auto Striper Relationship Specialty Start Date End Date Sharon Chung NP [address] [place] [address] PCP - General Family Medicine 01/27/24 documented as of this encounter
--- OUTSIDE RECORDS SUMMARY | 2025-02-28 09:39 | XMS_ITS | Clinical Summary ---
Author Organization [employer] Address [address] [facility] 7t [place] [address] Care Team Providers Care Manager Aviation Name Role Phone Sharon Chung NP Primary Care Provider [phone] Allergies No known active allergies Medications clonazePAM (KlonoPIN) 0.5 MG tablet take 1 tablet by oral route every day as needed for panic Active risperiDONE (RisperDAL) 0.25 MG tablet Take 0.25 mg by mouth in the morning and at bedtime. Active FLUoxetine (PROzac) 40 MG capsule Take 1 capsule by mouth at bed time. Active butalbital-aspi rin-caffeine (Fiorinal) 50-325-40 MG capsule take 1 capsule by oral route every 4 hours as needed not to exceed 6 capsules per 24hrs 9 Active zolpidem (Ambien) 10 MG tablet Take 1 tablet by mouth in the morning. Active ibuprofen 600 MG tablet Take 1 tablet TID for 2 weeks, then q8h PRN 30 tablet 1 3 Active fluticasone (Flonase) 50 MCG/ACT nasal spray Administer 2 sprays into each nostril in the morning. Shake gently. Before first use, prime pump. After use, clean tip and replace cap. 16 g 2 4 Active albuterol (ProAir HFA) 108 (90 Base) MCG/ACT inhaler Inhale 2 puffs every 4 (four) hours. 18 g 3 4 Active docusate sodium (Colace) 100 MG capsule Take 1 tab po bid prn constipation 60 capsule 3 5 Active hydrocortisone (Anusol-HC) 2.5 % rectal cream Insert into the rectum 2 times daily. 28 g 2 5 Active nicotine (Nicoderm, Step 1) 21 MG/24HR patchIndication s:Current nicotine use Apply 1 patch, as directed, every 24 hours. May remove at bedtime if needed & replace the next morning. Rotate application site. 42 patch Active Active Problems Problem Noted Date Diagnosed Date Chronic low back pain 10/14/2018 Mild intermittent asthma 10/14/2018 Seasonal allergies 10/14/2018 Right calf pain 03/16/2018 Insomnia 02/07/2017 Posttraumatic stress disorder 02/07/2017 Mixed anxiety and depressive disorder 02/07/2017 Encounters Date Type Department Care Team Description 02/25/2025 1:00 PM EDT Office Visit [address] [address] Sharon Chung NP Current nicotine use (Primary Dx); Encounter to establish care with new provider; Class 2 obesity due to excess calories without serious comorbidity with body mass index (BMI) of 35.0 to 35.9 in adult; Encounter for health-related screening 02/25/2025 Travel 02/24/[address] [address] Sharon Chung NP CHARTPREP 02/18/2025 Patient Outreach [facility] [address] [place] [address] Sharon Chung NP Pre-visit Planning (SDOH negative. Tobacco screening negative) 01/04/2025 Telephone [facility] [address] [place] [address] Helga Goodson [place] february12/17/2024 9:40 AM EDT Office Visit [facility] [address] [address] Jose Marshall MD Acute conjunctivitis of left eye, unspecified acute conjunctivitis type (Primary Dx) 12/17/2024 Travel 12/14/2024 1:00 PM EDT Office Visit [facility] [address] [address] Dimitry Gallagher MD Rectal bleeding (Primary Dx); External hemorrhoids; History of colonoscopy; Other constipation 12/14/2024 Travel 12/13/2024 Telephone [facility] [address] [place] [address] Sharon Marinelli NP Medication Question from Last 3 Months Family History Medical History Relation Name Comments Depression Father Diabetes Father Heart disease Father Depression Mother Insomnia Mother Relation Name Status Comments Father Mother Social History Tobacco Use Types Packs/Day Years Used Date Smoking Tobacco: Former Cigarettes Passive Smoke Exposure: Past Smokeless Tobacco: Current Tobacco Cessation:Ready to Q uit: Not Asked; Counseling Given: Not Answered Comments:Vape Alcohol Use Standard Drinks/Week Comments Not [...] Orientation Straight 03/25/2022 10 :15 AM EDT Last Filed Vital Signs Vital Sign Reading [...] Mass Index 35.71 02/25/2025 1:10 PM EDT Plan of Treatment Upcoming Encounters Date Type Department Care Team (Late st Contact Info) Description 04/13/2025 9:45 AM EST Office Visit [facility] [address] [place], [place] [phone] Sharon Chung NP [address] [place], [place] [phone] Health Maintenance Due Date Last Done Comments HIV Screening 1986 Lipid Panel 1986 Disability Screening 1986 Family Planning (PISQ) 2001 HPV Vaccines (1 - 3-dose series) 2001 Hepatitis C Screening 2004 Hepatitis B Vaccines (1 of 3 - 19+ 3-dose series) 2005 Pneumococcal Vaccine: Pediatrics (0 to 5 Years) and At-Risk Patients (6 to 49) Years (1 of 2 - PCV) 2005 COVID-19 Vaccine (3 - season) 2025 10/04/2020, 09/06/2020 Influenza Vaccine (#1) 2025 , 02/27/2023, 04/12/2021, Additional history exists Depression Monitoring 08/26/2025 02/25/2025, 025 SDOH Screening 02/18/2026 02/18/2025 Alcohol/Substance Use Screening 02/25/2026 02/25/2025 Tobacco Screening 02/25/2026 02/25/2025 Cervical Cancer Screening 01/31/2028 HPV/Cotest 01/31/2028 01/30/2023, 06/26, 07/08/2018, Additional history exists Pap Smear 01/31/2028 01/30/2023, 06/26, 07/12/2021 DTaP/Tdap/Td Vaccines (4 - Td or Tdap) 06/13/2033 06/13/2023, 02/07/2017, 02/16/2013 Zoster Vaccines (1 of 2) 2036 RSV Patients and Patients Aged 60 years or older (1 - 1-dose 75+ series) 2061 HIB Vaccines Aged Out No longer eligi ble based on patient's age to complete this topic Hepatitis A Vaccines Aged Out No long er eligible based on patient's age to complete this topic IPV Vaccines Aged Out No longer eligi ble based on patient's age to complete this topic Meningococcal B Vaccine Aged Out No l onger eligible based on patient's age to complete this topic Meningococcal Vaccine Aged Out No tasia dov eligible based on patient's age to complete this topic RSV under 20 months Aged Out No longe r eligible based on patient's age to complete this topic Rotavirus Vaccines Aged Out No longer eligible based on patient's age to complete this topic Procedures Procedure Name Priority Date/Time Associated Diagnosis Comments PAP/HPV Routine 01/30/2023 12:00 AM EDT from Last 3 Months or Most Recently Relevant to Health Maintenance Results * HM PAP/HPV (01/30/2023 12:00 AM EDT) Pap Smear 1. NILM 1. NILM [facility] HPV Not Detected Undetected, Indeterminat e, Quantitative , Not Detected [facility] us Historical Provider HEALTH MAINTENANCE Edited Result - Final [facility] [address] [place] [address] from Last 3 Months or Most Recently Relevant to Health Maintenance Insurance [facility] C3 Care Teams Manager Aviation Relationship Specialty Start Date End Date Sharon Chung NP [address] [place] [id number] PCP - General Family Medicine 01/27/24
--- OUTSIDE RECORDS SUMMARY | 2025-02-28 09:39 | XMS_ITS | Encounter Summary ---
Author Organization [employer] Address [address] [facility] 7t [place] [address] Care Team Providers Care Education Program Manager Name Role Phone Aicha HernandezP Primary Care Provider [phone] Sharon Chung NP Primary Care Provider [phone] Reason for Visit * Reason Onset Date Comments Nurse Triage 06/16/2023 Encounter Details Date Type Department Care Team ([facility] st Contact Info) Description 06/16/2023 Telephone [facility] [address] [place] [address] Aicha Hernandez FNP [address] [place] [address] Nurse Triage Social History Tobacco Use Types Packs/Day Years Used Date Smoking Tobacco: Former Cigarettes Passive Smoke Exposure: Past Smokeless Tobacco: Current Comments:Vape Alcohol Use Standard Drinks/Week Comments Yes 0 (1 standard drink = 0.6 oz pur e alcohol) Rarely Housing Stability Answer Date Recorded What is your housing situation today? I have alvin rosen 03/25/[address] you li ve. Do you have problems with any of the following? None of the above 03/25/2023 Food Insecurity Answer Date Recorded Within the past 12 months, y ou worried that your food would run out before you got money to buy more: Never True 03/25/2023 Within the past 12 months,th e food you bought just didn't last and you didn't have enough money to get more: Never True Transportation Answer Date Recorded In the past 12 months, has l ack of transportation kept you from medical appts, meetings, work or from getting things needed for daily living? No 03/25/2023 Utilities Answer Date Recorded In the past 12 months, has t he electric, gas, oil or water company threatened to shut off services in your home? No 03/25/2023 Comments Yes Sex and Gender Information Value Date Recorded Sex Assigned at Female 03/25/2022 10:15 AM EDT Legal Sex Female 10:15 AM EDT Gender Identity Female 03/25/2022 10:15 AM EDT Sexual Orientation Straight 03/25/2022 10 :15 AM EDT documented as of this encounter Miscellaneous Notes * Telephone Encounter - Cindy Foley RN - 06/16/2023 11:17 AM EST Triage call with [employer] Sales Director ID [id number]. Pt reports starting with cough week and a half ago.Pt denies fever but has some difficulty breathing with the coughing but, no difficulty breathing without the cough unless with exertion. Pt reports nasal drainage in the Am which is yellow-green and then gets clear during the day. Pt does have hx of asthma last proair inhaler ordered in 08/12/2018 so no inhaler available to use at this time. Pt is advised to come to [facility] today to be seen by provider and Pt agrees with disposition and home care advised. Protocol Used: Cough (Adult) Protocol-Based Disposition: See in Office or Video Visit Today or Tomorrow Video visit not offered Positive Triage Question: * Patient wants to be seen * All higher-acuity triage questions were negative Care Advice Discussed: * Reassurance and Education - Cough * Cough Medicines * Coughing Spells * Prevent Dehydration * Reasons To Call Back - Difficulty breathing - Cough lasts more than 3 weeks - Fever lasts more than 3 days - You become worse * Telephone Encounter - Russell Conklin - 06/16/2023 10:29 AM EST Symptom: Cough Outcome: Talk to a nurse or provider within 15 minutes Reason: Any trouble breathing through the mouth Sinhala Speaker documented in this encounter Plan of Treatment Upcoming Encounters Date Type Department Care Team (Late st Contact Info) Description 04/13/2025 9:45 AM EST Office Visit [facility] [address] [place] [address] Sharon Chung NP [address] [place] [address] documented as of this encounter Visit Diagnoses Not on filedocumented in this encounter Care Teams Education Program Manager Relationship Specialty Start Date End Date Aicha Hernandez FNP [address] [place] [address] PCP - General Family Medicine 02/28/22 01/26/24 Sharon Chung NP [address] [place] [address] PCP - General Family Medicine 01/27/24 documented as of this encounter
--- OUTSIDE RECORDS SUMMARY | 2025-02-28 09:39 | XMS_ITS | Encounter Summary ---
Author Organization [employer] Address [address] [facility] 7t [place] [address] Care Team Providers Care Sales Representative [employer] Name Role Phone Aicha Hernandez DIRECTOR OF MEDICAL EDUCATION Primary Care Provider [phone] Sharon Chung NURSE INFECTION CONTROL Primary Care Provider [phone] Reason for Visit * Reason Onset Date Comments Nurse Triage 12/27/2022 Encounter Details Date Type Department Care Team ([facility] st Contact Info) Description 12/27/2022 Telephone [facility] [address] [place] [address] Aicha Hernandez FNP [address] [place] [address] Nurse Triage Social History Tobacco Use Types Packs/Day Years Used Date Smoking Tobacco: Former Cigarettes Passive Smoke Exposure: Past Smokeless Tobacco: Current Comments:Vape Alcohol Use Standard Drinks/Week Comments Yes 0 (1 standard drink = 0.6 oz pur e alcohol) Rarely Comments Unknown Sex and Gender Information Value Date Recorded Sex Assigned at Female 03/25/2022 10:15 AM EDT Legal Sex Female 10:15 AM EDT Gender Identity Female 03/25/2022 10:15 AM EDT Sexual Orientation Straight 03/25/2022 10 :15 AM EDT documented as of this encounter Miscellaneous Notes * Telephone Encounter - Mel Garcia RN - 12/27/2022 4:09 PM EDT T /C to pt. Through [employer] id - [id number] for below message, pt. Advised to go to nearest for further evaluation for arm pain. Pt. Verbally agreed and understood. * Telephone Encounter - Christa Muniz RN - 12/27/2022 9:27 AM EDT Called pt. Via [employer] interpretor [id number] Elisa. Pt. States she went to [facility] for right arm pain and pt. [place] [facility] [place] which came back negative. Pt. Was sent home on Motrin but that hasnot helped. Pt. Continues to have right arm pain. Pt. Does get tingling and numbness in arm and pain starts at night. Pt. Does not have weakness in hand but has a hard time lifting heavy objects without getting pain in her arm. Pt. Has scheduled appt. On 01/08/23 at 330pm but she is requesting another medication for pain as Motrin is not working. Please advise and have team nurse call pt. Back with decision. Protocol Used: Arm Pain (Adult) Protocol-Based Disposition: See in Office or Video Visit within 2 Weeks- appt. Scheduled to see PCPon 01/08/23 @330pm. Video visit not offered Positive Triage Question: * Arm pain is a chronic symptom (recurrent or ongoing AND lasting > 4 weeks) * All higher-acuity triage questions were negative Care Advice Discussed: * Use Heat on Area After 48 Hours * Rest * Pain Medicines * Telephone Encounter - Jackeline Antonio - 12/27/2022 9:22 AM EDT Symptom: Arm Pain - Not From Injury Outcome: Schedule an urgent appointment (within 1 hour) or talk to a nurse or provider soon Reason: Severe pain now, medication given previously for pain is not working The caller accepted this outcome Please contact pt at [phone] (Macedonian) documented in this encounter Plan of Treatment Upcoming Encounters Date Type Department Care Team (Late st Contact Info) Description 04/13/2025 9:45 AM EST Office Visit [facility] [address] [place] [address] Sharon Chung NP [address] [place], [place] [phone] documented as of this encounter Visit Diagnoses Not on filedocumented in this encounter Care Teams Sales Representative Marine Supplies Relationship Specialty Start Date End Date Aicha Hernandez FNP [address] [place] [address] PCP - General Family Medicine 02/28/22 01/26/24 Sharon Chung NP [address] [place] [address] PCP - General Family Medicine 01/27/24 documented as of this encounter
--- OUTSIDE RECORDS SUMMARY | 2025-02-28 09:39 | XMS_ITS | Encounter Summary ---
Author Organization [employer] Address [address] [facility] 7t [place] [address] Care Team Providers Care Air Brake Operator Name Role Phone Sharon Chung NP Primary Care Provider [phone] Reason for Visit * Reason Onset Date Comments CHARTPREP 02/24/2025 Encounter Details Date Type Department Care Team (Late st Contact Info) Description 02/24/2025 Telephone [facility] [address] [place] [address] Sharon Chung NP [address] [place] [address] CHARTPREP Social History Tobacco Use Types Packs/Day Years [...] Access Q2 Not on file 02/18/2025 Comments Unknown Sex and Gender Information Value Date Recorded Sex Assigned at Female 03/25/2022 10:15 AM EDT Legal Sex Female 10:15 AM EDT Gender Identity Female 03/25/2022 10:15 AM EDT Sexual Orientation Straight 03/25/2022 10 :15 AM EDT documented as of this encounter Miscellaneous Notes * Telephone Encounter - Helga Goodson MA - 02/24/2025 9:27 AM EDT Chart Prep Labs: done Images: not applicable Referrals: not applicable Vaccines due: Covid, Flu, PCV20, Hep B, and HPV Screenings: not applicable Overdue care gaps: SBIRT, PHQ-9, MANI-7, and Disability screen documented in this encounter Plan of Treatment Upcoming Encounters Date Type Department Care Team (Late st Contact Info) Description 04/13/2025 9:45 AM EST Office Visit [facility] [address] [place] [address] Sharon Chung NP [address] [place] [address] documented as of this encounter Visit Diagnoses Not on filedocumented in this encounter Care Teams Air Brake Operator Relationship Specialty Start Date End Date Sharon Chung NP [address] [place] [address] PCP - General Family Medicine 01/27/24 documented as of this encounter
--- OUTSIDE RECORDS SUMMARY | 2025-02-28 09:39 | XMS_ITS | Encounter Summary ---
Author Organization [employer] Address [address] [facility] 7t [place] [address] Care Team Providers Care Warehouse Operator Name Role Phone Aicha HernandezP Primary Care Provider [phone] Sharon Chung NP Primary Care Provider [phone] Reason for Visit * Reason Onset Date Comments Durable Medical Equipment 04/15/2023 Encounter Details Date Type Department Care Team ([facility] st Contact Info) Description 04/15/2023 Telephone [facility] [address] [place] [address] Aicha Hernandez FNP [address] [place] [address] Durable Medical Equipment Social History Tobacco Use Types Packs/Day Years [...] encounter Miscellaneous Notes * Telephone Encounter - Jackeline Antonio - 04/15/2023 10:02 AM EST Tc from pt requesting a blood pressure monitor due to having past complication with having high blood pressure during past pregnancies. Please contact pt at [phone] (Lebanese) documented in this encounter Plan of Treatment Upcoming Encounters Date Type Department Care Team (Late st Contact Info) Description 04/13/2025 9:45 AM EST Office Visit [facility] [address] [place] [address] Sharon Chung NP [address] [place] [address] documented as of this encounter Visit Diagnoses Not on filedocumented in this encounter Care Teams Warehouse Operator Relationship Specialty Start Date End Date Aicha Hernandez FNP [address] [place] [address] PCP - General Family Medicine 02/28/22 01/26/24 Sharon Chung NP [address] [place] [address] PCP - General Family Medicine 01/27/24 documented as of this encounter
[2025-02-28 12:08] LABS: HBS Num1 5.69 mIU/mL (0-7.99); HBc Num1 0.09 S/CO (0.00-0.79); HBsAGNum1 0.30 S/CO (0.00-0.99); HIV Num 1 0.06 S/CO (0.00-0.99); Hepatitis B Surface Antigen Negative (Negative); ~HepC Num1 0.11 S/CO (0.00-0.79); ~Hepatitis B Surface Antibody NONREACTIVE (Nonreactive); ~Hepatitis C Antibody Nonreactive (Nonreactive)
[2025-02-28 12:15] LABS: Cholesterol 181 mg/dL (<200); HDL Cholesterol 37 mg/dL (>40); Triglycerides 101 mg/dL (<150)
== END 2025-02-28 08:51 | disposition home or self-care (01) ==
LOC: HO.HHCL 08:50
PROVIDERS: PCP Nurse Practitioner; Visit Provider Nurse Practitioner
DX: E66.812 Obesity, class 2 (principal); Z68.35 Body mass index [BMI] 35.0-35.9, adult; Z13.9 Encounter for screening, unspecified; Z13.89 Encounter for screening for other disorder; Z11.4 Encounter for screening for human immunodeficiency virus [HIV]; Z11.59 Encounter for screening for other viral diseases; Z01.84 Encounter for antibody response examination
CPT/HCPCS: 36415; 80061; 83036; 84443; 86704; 86706; 86803; 87340; 87389